=== PATIENT | male | born 2000 | race Caucasian/White ===

== ENCOUNTER 2025-07-15 10:38 | Emergency (ER) | payer OTHER ==
[~2025-07-15] VITALS: Ht 167.6 cm; Wt 61.3 kg
[2025-07-15 10:45] VITALS: TEMP 99.2
[2025-07-15] MEDS: NS (Normal Saline) 0.9% 1,000 ML IV ONE (12:24)
[2025-07-15 12:26] LABS: BASO # 0.1 10^3/uL (0.0-0.2); BASO % 0.5 % (0.0-1.0); EOS # 0.0 10^3/uL (0.0-0.5); EOS % 0.0 % (0.0-3.0); LYMPH # 1.8 10^3/uL (1.5-5.0); LYMPH % 13.0 % (24.0-44.0); MONO # 0.8 10^3/uL (0.0-0.8); MONO % 5.5 % (2.0-8.0); NEUTROPHILS # 11.0 10^3/uL (1.5-8.5); NEUTROPHILS % 80.6 % (36.0-66.0); PLATELET COUNT, AUTOMATED 291 10^3/uL (150-450)
[2025-07-15 12:48] LABS: CALCIUM LEVEL 10.0 MG/DL (8.5-10.1); CARBON DIOXIDE LEVEL 27 MMOL/L (20-31); CHLORIDE LEVEL 102 MMOL/L (98-107); CK-MB VALUE MASS < 1.0 NG/ML (<3.6); CREATININE FOR GFR 0.84 MG/DL (0.70-1.30); GLOMERULAR FILTRATION RATE > 90.0 (>60); MAGNESIUM LEVEL 2.0 MG/DL (1.8-2.4); POTASSIUM SERUM 4.1 MMOL/L (3.5-5.1); SODIUM LEVEL 139 MMOL/L (136-145)
[2025-07-15 12:50] LABS: FREE T4 1.22 NG/DL (0.89-1.76)
[2025-07-15 12:53] LABS: CPK CREATINE PHOSPHOKINASE 79 U/L (46-171)
[2025-07-15 13:36] LABS: CK-MB VALUE MASS < 1.0 NG/ML (<3.6)
[2025-07-15 13:37] LABS: CPK CREATINE PHOSPHOKINASE 68 U/L (46-171)
[2025-07-15] MEDS ORDERED: HOME MED LIST COMPLETE! XX SCH (14:50)
[2025-07-15 15:30] VITALS: BP 142/78
[2025-07-15 15:33] VITALS: O2SAT 97
[2025-07-15] MEDS ORDERED: HOLTER MONITOR XX (15:43)
== END 2025-07-15 16:12 | disposition home or self-care (01) ==
LOC: M ED 10:38
DX: R55 Syncope and collapse (principal); R00.0 Tachycardia, unspecified; D72.829 Elevated white blood cell count, unspecified

== ENCOUNTER → 2025-07-18 | Outpatient (CLI) | payer OTHER ==
[~2025-07-18] MED LIST: HOLTER MONITOR XX
== END ==
LOC: M EKG 10:02
PROVIDERS: ATTEND Physician Assistant
DX: R00.2 Palpitations (principal)